=== PATIENT | female | born 1990 | race Two or more races ===

== ENCOUNTER 2021-03-26 16:04 | Emergency (ER) | payer OTHER ==
[2021-03-26 16:17] VITALS: BP 109/60; PULSE 75; TEMP 98.2; BMI 26.2
== END 2021-03-26 17:14 | disposition home or self-care (01) ==
LOC: JER 16:04
DX: J06.9 Acute upper respiratory infection, unspecified (principal)
CPT/HCPCS: 87804; 99283-25; C9803; U0003; U0005

== ENCOUNTER 2021-04-10 13:54 | Emergency (ER) | payer OTHER ==
[2021-04-10 14:07] VITALS: BP 126/78; PULSE 78; TEMP 98.6; BMI 25.7
[2021-04-12 02:06] LABS: SARS-CoV-2 NAA Not Detected (Not Detected)
== END 2021-04-10 16:30 | disposition home or self-care (01) ==
LOC: JER 13:54
DX: Z20.822 Contact with and (suspected) exposure to COVID-19 (principal)
CPT/HCPCS: 99283-25; C9803-CS; U0003; U0005